=== PATIENT | female | born 1975 | race Caucasian/White ===

== ENCOUNTER → 2021-02-14 11:24 | Outpatient (CLI) | payer OTHER, SELFPAY ==
[2021-02-18 15:52] LABS: HPV Reflexed? NOT INDICATED
== END ==
PROVIDERS: Visit Provider Obstetrics & Gynecology
DX: Z12.4 Encounter for screening for malignant neoplasm of cervix (principal)
CPT/HCPCS: 88175; G0145

== ENCOUNTER → 2021-11-01 | Outpatient (CLI) | payer OTHER, SELFPAY ==
--- NOTE | 2021-11-01 13:34 | BI_ITS ---
MAMMOGRAPHY - BILATERAL SCREENING 3-D TOMOSYNTHESIS REASON FOR EXAM: Female, 45 years old. SCREENING PERTINENT HISTORY: No significant family history. TECHNIQUE: 2-D mammograms and 3-D Tomosynthesis of the breast (s) were performed. CAD was performed. COMPARISON: 07/10/2014 FINDINGS: The breast composition is Extermely dense tissue. Scattered benign calcifications are seen. No dense spiculated masses or suspicious microcalcifications are identified. No architectural distortion is identified. There is no skin thickening or retraction. There has been no significant change since the prior study. BI/SCRN MAMM (CAD)W/RANDA BILAT IMPRESSION: No mammographic signs of malignancy. Routine yearly mammograms recommended. ASSESSMENT CATEGORY: BIRADS Category 1: Negative. A letter regarding these results will be sent to the patient by the facility within 30 days. FOLLOW UP RECOMMENDATION: Yearly follow up mammogram recommended. (A) Approximately 10% of breast cancers are not detected by mammography. A normal mammogram should not delay biopsy of a clinically suspicious abnormality. Electronically Signed: Hal Hamm MD at 15:06 EDT ,
== END | disposition home or self-care (01) ==
PROVIDERS: Referring Provider Obstetrics & Gynecology; Visit Provider Obstetrics & Gynecology
DX: Z12.31 Encounter for screening mammogram for malignant neoplasm of breast (principal)
CPT/HCPCS: 77063; 77067

== ENCOUNTER → 2022-05-10 | Outpatient (CLI) | payer OTHER, SELFPAY ==
[2022-05-10 07:47] LABS: Absolute Lymphocyte Count 2.13 X10^3/uL (0.83-4.51); Absolute Neutrophil Count 3.1 X10^3/uL (2.0-7.7); Basophil# 0.03 X10^3/uL; Basophil% 0.5 % (0-1); Eosinophil# 0.04 X10^3/uL; Eosinophils% 0.7 % (0-5); Hematocrit 40.4 % (37-47); Hemoglobin 13.7 g/dL (12.0-15.0); Lymphocyte # 2.13 X10^3/ul (0.83-4.51); Lymphocyte % 37.2 % (19-41); Mean Corp Hgb Conc 33.9 g/dL (32-36); Mean Corpuscular Hgb 32.5 pg (27.0-32.0); Mean Corpuscular Volume 95.7 fL (81-99); Mean Platelet Vol. 10.5 fl (6.2-12.0); Monocyte# 0.44 X10^3/uL; Monocyte% 7.7 % (0-10); NRBC Flagged by Analyzer 0 % (0-5); Neutrophil # 3.06 X10^3/uL (2.7-7.7); Neutrophil % 53.6 % (47-70); Platelet Count 268 K/mm3 (150-450); RBC Distribution Width CV 13.9 % (11.6-14.6); Red Blood Count 4.22 M/mm3 (4.2-5.4); White Blood Count 5.7 K/mm3 (4.4-11.0)
[2022-05-10 16:26] LABS: Hemoglobin A1c 5.3 % (3.8-5.6)
[2022-05-10 17:11] LABS: ALB/GLOB Ratio 1.1 RATIO (0.9-2.4); AST(SGOT) 15 U/L (15-37); Alanine Aminotransfer ALT/SGPT 19 U/L (13-56); Albumin, Serum 3.6 g/dL (3.2-5.0); Alkaline Phosphatase 49 U/L (45-117); Anion Gap 4 (5-15); BUN 14 mg/dL (7-18); BUN/Creat Ratio 16.8 RATIO (10-20); Calcium,Total 8.5 mg/dL (8.5-10.1); Chloride 108 mmol/L (98-107); Creatinine, Serum 0.83 mg/dL (0.55-1.02); EST Glomerular Filtration Rate 77 mL/min (>60); Est Glom Filt Rate - Afr Amer 94 mL/min (>60); Estradiol 160.8 pg/mL; Ferritin 7 ng/mL (8-252); GGTP 7 U/L (5-55); Globulin 3.4 g/dL (2.2-4.2); Glucose 104 mg/dL (74-106); Potassium 3.9 mmol/L (3.5-5.1); Prolactin 17.1 ng/mL; Sodium Level 139 mmol/L (136-145); T4 Free Direct 0.87 ng/dL (0.76-1.46); Thyroid Stim Hormone (TSH) 2.15 uIU/mL (0.358-3.74)
[2022-05-12 08:39] LABS: Insulin 8.7 mU/L (2.6-37.6); Progesterone Level 9.82 ng/mL (See Comment); T3 Total - Triiodothyronine 0.77 ng/mL (0.6-1.81); Vitamin B12 436 pg/mL (211-911); Vitamin D,25 Hydroxy 27.8 ng/mL
[2022-05-16 10:09] LABS: DHEA Sulfate 62.7 ug/dL (41.2-243.7); Testosterone, % Free 1.61 % (0.50-2.80); Testosterone, Free 0.35 ng/dL (0.10-0.85); Testosterone, Total 22 ng/dL (4-50)
[2022-05-17 18:58] LABS: T3 Reverse 13.7 ng/dL (9.2-24.1); VITAMIN B6 6.2 ug/L (3.4-65.2)
== END | disposition home or self-care (01) ==
PROVIDERS: Visit Provider Obstetrics & Gynecology
DX: R53.83 Other fatigue (principal); N92.6 Irregular menstruation, unspecified; N95.1 Menopausal and female climacteric states; E03.9 Hypothyroidism, unspecified; Z13.1 Encounter for screening for diabetes mellitus; Z13.228 Encounter for screening for other metabolic disorders
CPT/HCPCS: 36415; 80053; 82306; 82607; 82627; 82670; 82728; 82746; 82977; 83036; 83525; 84144; 84146; 84207; 84270; 84402; 84403; 84439; 84443; 84480; 84481; 84482; 85025; 82626

== ENCOUNTER 2022-07-11 06:00 | Day surgery (SDC) | payer OTHER, SELFPAY ==
[2022-07-03 12:15] LABS: Hematocrit 42.3 % (37-47); Hemoglobin 13.9 g/dL (12.0-15.0); Mean Corp Hgb Conc 32.9 g/dL (32-36); Mean Corpuscular Volume 97.2 fL (81-99); Mean Platelet Vol. 11.3 fl (6.2-12.0); Platelet Count 247 K/mm3 (150-450); RBC Distribution Width CV 14.5 % (11.6-14.6); Red Blood Count 4.35 M/mm3 (4.2-5.4); White Blood Count 6.1 K/mm3 (4.4-11.0)
[2022-07-11] VITALS (7 sets, daily range): BP systolic 98–110; BP diastolic 59–79; PULSE 54–73; RESP 16; TEMP 36.2–36.8; O2SAT 96–99; BMI 29.0
--- NOTE | 2022-07-11 04:42 | PCM.HP.STD ---
HPI - General General Date of Admission: 07/11/22 Date of Service: 07/03/22 Chief Complaint: scheduled hysteroscopy, d&C HPI Narrative LAURE SILVER, is a 46 F presenting for scheduled hysteroscopy, dilation and curettage for abnormal uterine bleeding and pelvic US suggesting endometrial polyp. [facility], [facility] Medical History Non-smoker Wears glasses Home Medications progesterone micronized 100 mg capsule 100 mg PO DAILY 07/01/22 [History Last Taken Unknown] DHEA, Micronized 10 mg DAILY 07/11/22 [History Last Taken Unknown] cholecalciferol (vitamin D3) 1,250 mcg (50,000 unit) capsule 07/11/22 [History Last Taken Unknown] ferrous sulfate 325 mg (65 mg iron) tablet (FeroSul) mg 07/11/22 [History Last Taken Unknown] magnesium 200 mg tablet 400 mg PO DAILY 07/11/22 [History Last Taken Unknown] Allergy/AdvReac Type Severity Reaction Status Date / Time Penicillins [PCN] Allergy Hives Verified 07/01/22 15:46 acetaminophen [From Vicodin] AdvReac Nausea Verified 07/01/22 15:46 hydrocodone [From Vicodin] AdvReac Nausea Verified 07/01/22 15:46 Family History (Updated 07/11/22 @ 04:[address] Rebecca Avila MD) Father Diabetes Heart disease Sister , 2014 Breast cancer Surgical History No history of previous surgery Social History (Updated 07/11/22 @ 04:[address] Rebecca Avila MD) Smoking Status: Never smoker Vital Signs Vital Signs Vital Signs: 07/03/22: BP 110/72, HR 80 bpm, T 97.3, LMP 06/13/22, Wt 156.2lb, Ht 62.5in, BMI 28.11 Physical Exam Const alert, oriented x3 and no apparent distress HEENT normocephalic Resp normal respiratory effort, normal air movement and clear to auscultation bilaterally Cardio regular rate, regular rhythm, S1 normal heart sound, S2 normal heart sound and no murmurs Extremity full ROM Neuro oriented x3 and moves all extremities Psych mental status grossly normal and affect normal Results Lab / Micro Data Result Diagrams: 07/03/22 11:18 Assessment & Plan Assessment/Plan (1) Excessive and frequent menstruation with regular cycle: PLAN: Plan for hysteroscopy, d&C, polypectomy as indicated. Office consents signed 07/03/22. UPT prior to surgery pending.
[2022-07-11] MEDS: Lactated Ringers 1,000 ML 15 ML IV (06:55)
[2022-07-11 07:18] LABS: Internal QC Validated? YES +Cl - CLEAR BKGD; Pregnancy, Urine Negative Negative
--- NOTE | 2022-07-11 07:30 | EMB_PTH ---
PATIENT: LAURE SILVER [place] [facility] [place][id number] AGE/SX: 46/F ROOM: RE07/11/[address]: Dr. Rebecca Avila MD : 1975 BED: DIS: 07/11/2022 SPEC #: [id number] RECD: 07/11/22 07:43 STATUS: ROSCOE LOCO #: [id number] KATELYN: 07/11/22 07:[address]: Rebecca Quinones DEPT: SURGICAL PATHOLOGY RECD BY: Celio Rg ENTERED: 07/11/22 09:18 SP TYPE: ENDOM BX/C MARSHAL DR: No Primary Care Phys Tissues: Endometrium, NOS Procedures: Surgery Specimen Level IV HEADER OPERATION: Hysteroscopy, D & C Symphion PRE-OP DIAGNOSIS: Excessive and frequent menstruation with regular cycle TISSUE SUBMITTED: Endometrial curettings and polyp MICROSCOPIC DIAGNOSIS Endometrial curettings and polyp: Polypoid fragments of secretory endometrium. AM:macrina 07/15/2022 MICROSCOPIC DESCRIPTION Slides are reviewed. GROSS DESCRIPTION Received in fixative is one container labeled with the patient's name and designated endometrial curettings and polyp. The specimen consists of multiple irregular fragments of dial-pink soft tissue that in aggregate measure 2.5 x 2.5 x 0.3 cm. The specimen is totally submitted in one cassette. / SJ:macrina 07/11/2022 TC:5 CPT: 66093
--- NOTE | 2022-07-11 07:44 | DCINST_ITS ---
Discharge Instructions Diet Discharge Diet: No restrictions Activity Discharge Activity: Return to Normal Activity May resume sexual activity in: - (2-4 weeks) Dressing / Incision Call your doctor if you observe: Fever of 101 or Higher, Inability to urinate, Using more than 1 pad per hour, Shortness of breath, Chest pain, Calf discomfort and Uncontrolled pain Follow Up Care Please Follow Up With: Rebecca Quinones MD When: July 25, 2022 at 10:30am Test Results: Test results from this visit will be discussed in further detail at your follow- up appointment, if applicable. Discharge Plan Admission Primary Reason for Your Visit: Hysteroscopy, Dilation and curettage, polyp removal Attending Provider: Rebecca Quinones Primary Care Provider: Care PhysicianLashonda Primary Instructions Patient Instructions: Hysteroscopy Discharge Orders/Prescriptions Prescriptions: New oxycodone 5 mg tablet 5 mg PO TID PRN (Reason: pain) 1 Days Qty: 3 0RF ibuprofen 600 mg tablet 600 mg PO TID PRN (Reason: pain) Qty: 30 0RF Continued progesterone micronized 100 mg capsule 100 mg PO DAILY Label Comments: take 1 capsule by mouth at bedtime ON CYCLE DAYS 16 THROUGH 25 Rx Instructions: 10 DAYS OUT OF THE NOTH ferrous sulfate [FeroSul] 325 mg (65 mg iron) tablet Label Comments: take 1 tablet by mouth once daily magnesium 200 mg Tablet 400 mg PO DAILY cholecalciferol (vitamin D3) 1,250 mcg (50,000 unit) capsule Label Comments: take 1 capsule by mouth every week DHEA, Micronized 10 mg DAILY Referrals / Follow Up: Care Physician,No Primary [Primary Care Provider] - Disposition Disposition (needs filled in before D/C Order can be placed): Home, Self Care
[2022-07-11] MEDS: Lidocaine 1% (20 ml mdv) 20 ML Vial (07:54)
--- NOTE | 2022-07-11 08:14 | PCM.OPRPT ---
Problems Associated Problem List Diagnoses (1) Excessive and frequent menstruation with regular cycle: Report of Operation Date of Procedure: 07/11/22 Pre-Operative Diagnosis: 1. Excessive and frequent menstruation with regular cycle 2. Endometrial polyp Post-Operative Diagnosis: 1. Excessive and frequent menstruation with regular cycle 2. Endometrial polyp Surgery/Procedure Performed:: 1. Hysteroscopy 2. Dilation and curettage 3. Symphion polypectomy Description of Surgical Findings:: Endometrial polyp x 2 Surgeon: Rebecca Quinones Type of Anesthesia: Local MAC Anesthesiologist: Sharad Bee Specimen's removed: endometrial curettings and polyp Estimated Blood Loss (mL): 10 Fluids Replaced: 800 mL Description of Procedure: Indication: 46-year-old 3 para 3 with a history of abnormal uterine bleeding was found to have endometrial polyp on office ultrasound. She was counseled regarding management options and opted to proceed with hysteroscopy, D&C polypectomy. Procedural risks, benefits, indications and alternatives were reviewed at length. Informed consent was obtained. Procedure: The patient was brought to the operating room and sinus performed. She is placed in the dorsal supine position and induced under MAC. She was repositioned to dorsolithotomy and examination under anesthesia was performed. The perineum was prepped and draped in sterile fashion patient placed into high lithotomy. A bivalve speculum was placed vaginally cervix grasped the anterior cervical lip using a single-tooth tenaculum. A paracervical block was placed using 1% lidocaine a total of 20 cc. The uterus sounded to 7 cm. The cervix was subsequently dilated to 24 Ethiopian and hysteroscopy performed using the Symphion system. 2 polyps were identified from the left fundus. The Symphion was used to resect the polyp and endometrial sampling performed using the resectoscope. The procedure was complete with anatomy restored. The scope was removed as was the tenaculum. The tenaculum site was hemostatic following compression. The speculum was removed from the vagina and the patient was repositioned to dorsal supine, awakened and will be transferred to the recovery room. Sponge counts are correct x2. Procedure Start Time: 07:54 Procedure Stop Time: 08:10 Complications None Admit VTE Documentation VTE Present on Admission: No VTE Mechan Device Prophylaxis: SCD's VTE Pharm Prophylaxis ordered?: No Procedures Urinary/Genital [id number]: 15123 Hysteroscopy, EMC,Polypectomy (Hysteroscopy, dilation and curettage, polypectomy)
== END 2022-07-11 10:08 | disposition home or self-care (01) ==
LOC: SDC 06:00 → AC 06:01
PROVIDERS: Referring Provider Obstetrics & Gynecology; Visit Provider Obstetrics & Gynecology
PROC: 0UB98ZZ Excision of Uterus, Via Natural or Artificial Opening Endoscopic (ICD-10-PCS; CPT 58558; principal; 2022-07-11 07:15)
DX: N92.0 Excessive and frequent menstruation with regular cycle (principal); N84.0 Polyp of corpus uteri; N93.9 Abnormal uterine and vaginal bleeding, unspecified
CPT/HCPCS: 58558; 00952; 36415; 81025; 85027; 86850; 86900; 86901; 88305; J7120; J2405

== ENCOUNTER → 2022-09-22 | Outpatient (CLI) | payer OTHER, SELFPAY ==
[2022-09-22 09:38] LABS: Absolute Neutrophil Count 3.7 X10^3/uL (2.0-7.7); Basophil# 0.03 X10^3/uL; Basophil% 0.5 % (0-1); Eosinophil# 0.05 X10^3/uL; Eosinophils% 0.8 % (0-5); Hematocrit 42.2 % (37-47); Hemoglobin 14.1 g/dL (12.0-15.0); Lymphocyte % 31.5 % (19-41); Mean Corp Hgb Conc 33.4 g/dL (32-36); Mean Corpuscular Volume 95.9 fL (81-99); Mean Platelet Vol. 11.4 fl (6.2-12.0); Monocyte% 7.9 % (0-10); NRBC Flagged by Analyzer 0 % (0-5); Neutrophil # 3.73 X10^3/uL (2.7-7.7); Neutrophil % 58.8 % (47-70); Platelet Count 234 K/mm3 (150-450); RBC Distribution Width SD 46.5 fl (35.1-43.9); White Blood Count 6.3 K/mm3 (4.4-11.0)
[2022-09-22 10:03] LABS: Insulin 3.7 mU/L (2.6-37.6); Progesterone Level 14.43 ng/mL (See Comment)
[2022-09-22 10:14] LABS: ALB/GLOB Ratio 1.3 RATIO (0.9-2.4); AST(SGOT) 14 U/L (15-37); Alanine Aminotransfer ALT/SGPT 19 U/L (13-56); Alkaline Phosphatase 42 U/L (45-117); Anion Gap 9 (5-15); BUN 15 mg/dL (7-18); Calcium,Total 9.1 mg/dL (8.5-10.1); Chloride 105 mmol/L (98-107); Cholesterol 184 mg/dL (200); Creatinine, Serum 0.83 mg/dL (0.55-1.02); EST Glomerular Filtration Rate 77 mL/min (>60); Est Glom Filt Rate - Afr Amer 94 mL/min (>60); Estradiol 183.1 pg/mL; Ferritin 40 ng/mL (8-252); Follicle Stimulating Hormone 3.4 mIU/mL; Free T3 2.1 pg/mL (2.18-3.98); Globulin 3.1 g/dL (2.2-4.2); Glucose 93 mg/dL (74-106); High Density Lipoprotein 60 mg/dL; Iron 131 ug/dL (50-170); Iron Binding Capacity,Total 264 ug/dL (250-450); Lipase 97 U/L (73-393); Luteinizing Hormone 2.6 mIU/mL; PERCENT IRON SATURATION 49.6 % (15.0-55.0); Potassium 3.8 mmol/L (3.5-5.1); Protein, Total 7.1 g/dL (6.4-8.2); Sodium Level 139 mmol/L (136-145); T4 Free Direct 1.08 ng/dL (0.76-1.46); Thyroid Stim Hormone (TSH) 1.45 uIU/mL (0.358-3.74); Triglycerides 49 mg/dL; Very Low Density Lipoprotein 10 mg/dL (5-40)
[2022-09-26 12:08] LABS: Testosterone, Free 0.31 ng/dL (0.10-0.85); Testosterone, Total 31 ng/dL (4-50)
[2022-09-26 13:35] LABS: T3 Reverse 19.6 ng/dL (9.2-24.1); Thyroglobulin Antibody < 1.0 IU/mL (0.0-0.9); Thyroid Peroxidase AB 10 IU/mL (0-34)
== END | disposition home or self-care (01) ==
DX: R63.5 Abnormal weight gain (principal); D68.51 Activated protein C resistance; E03.9 Hypothyroidism, unspecified; R53.82 Chronic fatigue, unspecified; D25.9 Leiomyoma of uterus, unspecified
CPT/HCPCS: 36415; 80053; 80061; 82627; 82670; 82728; 83001; 83002; 83036; 83525; 83540; 83550; 83690; 84144; 84402; 84403; 84439; 84443; 84481; 84482; 85025; 86376; 86800; 82626

== ENCOUNTER → 2024-04-12 | Outpatient (CLI) | payer OTHER, SELFPAY ==
[2024-04-12 09:09] LABS: Hematocrit 37.8 % (37-47); Hemoglobin 12.3 g/dL (12.0-15.0); Mean Corp Hgb Conc 32.5 g/dL (32-36); Mean Corpuscular Hgb 31.9 pg (27.0-32.0); Mean Corpuscular Volume 97.9 fL (81-99); Platelet Count 245 K/mm3 (150-450); RBC Distribution Width CV 13.3 % (11.6-14.6); RBC Distribution Width SD 48.1 fl (35.1-43.9); Red Blood Count 3.86 M/mm3 (4.2-5.4); White Blood Count 6.1 K/mm3 (4.4-11.0)
[2024-04-12 09:37] LABS: T3 Total - Triiodothyronine 0.83 ng/mL (0.6-1.81)
[2024-04-12 09:58] LABS: ALB/GLOB Ratio 1.2 RATIO (0.9-2.4); AST(SGOT) 20 U/L (15-37); Alanine Aminotransfer ALT/SGPT 26 U/L (13-56); Albumin, Serum 3.8 g/dL (3.2-5.0); Alkaline Phosphatase 55 U/L (45-117); Anion Gap 6 (5-15); BUN 8 mg/dL (7-18); BUN/Creat Ratio 10.7 RATIO (10-20); Calcium,Total 8.6 mg/dL (8.5-10.1); Chloride 109 mmol/L (98-107); Creatinine, Serum 0.75 mg/dL (0.55-1.02); EST Glomerular Filtration Rate 87 mL/min (>60); Est Glom Filt Rate - Afr Amer 106 mL/min (>60); Estradiol 33.7 pg/mL; Follicle Stimulating Hormone 12.2 mIU/mL; Globulin 3.3 g/dL (2.2-4.2); Glucose 97 mg/dL (74-106); Potassium 3.5 mmol/L (3.5-5.1); Protein, Total 7.1 g/dL (6.4-8.2); Sodium Level 142 mmol/L (136-145); T4 Free Direct 0.88 ng/dL (0.76-1.46)
[2024-04-12 10:49] LABS: Hemoglobin A1c 5.2 % (3.8-5.6)
[2024-04-17 16:09] LABS: Insulin Level 2.8 uIU/mL (2.6-24.9); Testosterone, % Free 1.13 % (0.50-2.80); Testosterone, Free 0.15 ng/dL (0.10-0.85); Testosterone, Total 13 ng/dL (4-50)
== END | disposition home or self-care (01) ==
PROVIDERS: Referring Provider Obstetrics & Gynecology; Visit Provider Obstetrics & Gynecology
DX: E28.9 Ovarian dysfunction, unspecified (principal); Z13.220 Encounter for screening for lipoid disorders; Z13.1 Encounter for screening for diabetes mellitus; Z13.228 Encounter for screening for other metabolic disorders; R63.5 Abnormal weight gain
CPT/HCPCS: 36415; 80053; 82670; 83001; 83036; 83525; 84402; 84403; 84439; 84443; 84480; 85027